=== PATIENT | male | born 1975 | race Caucasian/White ===

== ENCOUNTER → 2017-09-28 | Outpatient (CLI) | payer BC, OTHER ==
--- NOTE | 2017-09-28 14:45 | DIAGNOSTIC IMAGING REPORT ---
TESTICULAR ULTRASOUND CLINICAL HISTORY: N50.89 Testicle [id number] COMPARISON STUDY: 10/04/2015 FINDINGS: The right testis measures 49 x 31 x 29 mm pure the left testis measures 48 x 30 x 24 mm. No intratesticular masses are visualized. There is no evidence of testicular torsion. There is a large right-sided hydrocele and small left hydrocele. No epididymal abnormalities are visualized. IMPRESSION: 1. No evidence of intratesticular mass 2. No evidence of testicular torsion 3. Persistent large right-sided hydrocele and small left-sided hydrocele. Electronically signed by: Kelvin Medina M.D. 09/28/2017 2:43 PM Dictated Date/Time: 09/28/2017 2:41 PM
== END | disposition home or self-care (01) ==
LOC: C.ULTR 13:57
PROVIDERS: ATTEND Nurse Practitioner Family
DX: N43.3 Hydrocele, unspecified (principal)